=== PATIENT | female | born 1950 | race Two or more races ===

== ENCOUNTER 2019-12-13 11:30 | Inpatient (IN) | payer OTHER ==
[~2019-12-13] VITALS: Ht 154.9 cm; Wt 82.6 kg
[2019-12-24] MEDS ORDERED: SYNTHROID100 MCG PO (12:09)
[2019-12-24] MEDS ORDERED: COZAAR100 MG PO (12:09)
[2019-12-24] MEDS ORDERED: METFORMIN HCL1000 M3 PO (12:10)
[2019-12-24] MEDS ORDERED: NORVASC5 MG PO (12:11)
== END 2020-01-05 11:17 | DRG 741 ==
LOC: O/R 12-17 11:30 → OB/GYN 01-03 07:45 → O/R 01-03 07:45 → OB/GYN 01-03 17:06
PROVIDERS: ADMIT Obstetrics & Gynecology Gynecologic Oncology
PROC: 0DNW0ZZ Release Peritoneum, Open Approach (ICD-10-PCS; 2020-01-03)
PROC: 0UT70ZZ Resection of Bilateral Fallopian Tubes, Open Approach (ICD-10-PCS; 2020-01-03)
PROC: 0UT20ZZ Resection of Bilateral Ovaries, Open Approach (ICD-10-PCS; 2020-01-03)
PROC: 0TN70ZZ Release Left Ureter, Open Approach (ICD-10-PCS; 2020-01-03)
PROC: 0TN60ZZ Release Right Ureter, Open Approach (ICD-10-PCS; 2020-01-03)
PROC: 0UT90ZZ Resection of Uterus, Open Approach (ICD-10-PCS; principal; 2020-01-03 11:00)
DX: C54.8 Malignant neoplasm of overlapping sites of corpus uteri (principal)

== ENCOUNTER 2021-07-21 05:55 | Day surgery (SDC) | payer OTHER ==
[~2021-07-21 05:55] MED LIST: COZAAR100 MG PO; METFORMIN HCL1000 M3 PO; NORVASC5 MG PO; SYNTHROID100 MCG PO
== END 2021-07-21 11:05 | disposition home or self-care (01) ==
LOC: AMB-ENDOS 05:55
PROVIDERS: ATTEND Surgery
DX: D12.0 Benign neoplasm of cecum (principal)